=== PATIENT | female | born 1980 | race Caucasian/White ===

== ENCOUNTER 2020-01-12 10:10 | Emergency (ER) | payer OTHER ==
--- NOTE | 2020-01-12 10:32 | ED.PDOC ---
History of Present Illness - General Chief Complaint: Fever Stated Complaint: Fever Time Seen by Provider: 01/12/20 10:18 Source: patient, police Exam Limitations: no limitations - History of Present Illness Initial Comments: This is a 39-year-old female with no significant past medical history presenting to the emergency department with intermittent fevers. She is currently an inmate [facility] the [facility]. She was arrested and has been in custody since 1700 yesterday. Her boyfriend is also incarcerated at the [facility], and is also a patient in the emergency department with intermittent fevers. No recent travel, no known flu/coronavirus contacts. She is 8 weeks , A1 at approximately 8 weeks. She has seen an manager personnel selection for this , had an outpatient ultrasound showing a single IUP. She reports some mild dysuria and urinary frequency. She also reports a mild cough and sore throat. Her temp at the shelter at 6:00 this morning was 102. She is afebrile in the emergency department. She denies any shortness of breath. She does report some mild diarrhea, but states this is been ongoing since she found out she was . She denies any bleeding or vaginal discharge.The patient and her boyfriend recently moved from [place] to [place], and they have been living in a motel for the past several weeks Review of Systems - Review of Systems Constitutional: States: chills, fever. Denies: diaphoresis, malaise EENTM: States: throat pain. Denies: nose congestion Respiratory: States: cough. Denies: short of breath, wheezing Cardiology: Denies: chest pain, edema Gastrointestinal/Abdominal: States: diarrhea. Denies: abdominal pain, nausea, vomiting Musculoskeletal: Denies: joint pain, joint swelling, muscle pain Skin: Denies: lesions, rash Endocrine: States: increased urine. Denies: increased hunger, increased thirst Hematologic/Lymphatic: States: no symptoms reported All other Systems: Reviewed and Negative Past Medical History (General) - Patient Medical History Hx Asthma: No Hx Cardiac Disorders: No Hx Congestive Heart Failure: No Hx Thyroid Disease: No Hx Diabetes: No Hx Gastroesophageal Reflux: No Family Medical History - Family History Mother Family History: No Known Physical Exam - Physical Exam General Appearance: Alert, Comfortable Eye Exam: bilateral normal ENT Exam: hearing grossly normal, TMs normal Neck: non-tender, full range of motion, supple Respiratory: lungs clear, normal breath sounds, no respiratory distress, no accessory muscle use Cardiovascular/Chest: normal peripheral pulses, regular rate, rhythm, no edema, no gallop, no JVD, no murmur Gastrointestinal/Abdominal: non tender, soft Extremity: non-tender, normal inspection Neurologic: no motor/sensory deficits, alert, normal mood/affect, oriented x 3 Skin Exam: normal color, warm/dry Progress - Progress Progress: 01/12/20 12:27 This patient was brought to the emergency department for fever of unknown origin. She is currently incarcerated. called Dr. Mcdonough, who recommended patient be brought in for testing. She is afebrile here, normal sats, essentially asymptomatic except for dysuria and a very mild cough. UA suggestive of UTI. Will discharge home with keflex, UCx pending. Typically, she would not require coronavirus testing given normal vital signs and minimal symptoms in the ED, but since she is currently incarcerated, I felt coronavirus testing was indicated simply from a public health standpoint so that appropriate measures can be taken at the shelter for quarantine. I explained to the patient and to the shoe repairer apprentice that Covid results would not come back today and the patient will need to be quarantined until resulted. 01/12/20 18:18 Documented heart rate of 8 I believe is an error. When I listen to her heart, heart rate was in the 70s to 80s, no dizziness, no symptoms. 01/12/20 18:20 - Results/Orders Results/Orders: 1 view chest x-ray reviewed personally by me at 10:36 AM. No infiltrates, no pneumothorax, no acute process PROCEDURE: XR Chest, 1 View CLINICAL INDICATION: The patient is 39 years old and is Female; cough, fever MAIN TECHNIQUE: Frontal view of the chest. COMPARISON: Prior study from 09/02/2018. FINDINGS: LUNGS: The lungs are clear and free of focal consolidation. PLEURAL SPACE: There is no pneumothorax. There are no pleural effusions noted. HEART: The heart size is normal. MEDIASTINUM: The mediastinal contour is normal. BONES/JOINTS: No acute abnormality noted. VASCULATURE: Pulmonary vascularity is not engorged. IMPRESSION: No active disease is seen in the chest. Electronically signed by: Rick Crane MD 01/12/2020 10:42 AM CDT Departure - Departure Clinical Impression: Fever in adult, Cystitis during in first trimester, antepartum Disposition: Group Home Condition: Good Departure Forms: ED Discharge - Pt. Copy, Patient Portal Self Enrollment Instructions: DI for Fever (Symptom) -- Adult, Urinary Tract Infection, Adult (DC) Prescriptions: Cephalexin Monohydrate [Keflex] 500 mg PO BID 5 Days cap Home Medications: Ambulatory Orders Cephalexin Monohydrate [Keflex] 500 mg PO BID 5 Days cap 01/12/20 Additional Instructions: Wash hands frequently. Do not touch her mouth, eyes, face. Patient needs to be quarantined in the shelter until coronavirus results have been returned. Drink plenty of fluids. Follow-up with your manager personnel selection as soon as possible for ongoing management of your . Return to the emergency room for abdominal pain, bleeding, shortness of breath, changes in mental status, intractable vomiting, or any other concerns.
--- NOTE | 2020-01-12 10:44 | RAD ---
PROCEDURE: XR Chest, 1 View CLINICAL INDICATION: The patient is 39 years old and is Female; cough, fever MAIN TECHNIQUE: Frontal view of the chest. COMPARISON: Prior study from 09/02/2018. FINDINGS: LUNGS: The lungs are clear and free of focal consolidation. PLEURAL SPACE: There is no pneumothorax. There are no pleural effusions noted. HEART: The heart size is normal. MEDIASTINUM: The mediastinal contour is normal. BONES/JOINTS: No acute abnormality noted. VASCULATURE: Pulmonary vascularity is not engorged. IMPRESSION: No active disease is seen in the chest. Electronically signed by: Rick Crane MD 01/12/2020 10:42 AM CDT
[2020-01-12] MEDS ORDERED: cefTRIAXone SODIUM 1 GM in SODIUM CHL 0.9% 50ML MIN-BAG+ 50 ML IVPB ONE (12:03)
[2020-01-12] MEDS ORDERED: SODIUM CHL 0.9% 50ML MIN-BAG+ 50 ML IVPB ONE (12:07)
[2020-01-12] MEDS ORDERED: cefTRIAXone SODIUM 1 GM VIAL ONE (12:07)
[2020-01-12 12:53] VITALS: BP 96/71; TEMP 98.8; O2SAT 99
== END 2020-01-12 12:35 ==
LOC: ER 10:10
DX: O23.11 Infections of bladder in pregnancy, first trimester (principal); O26.891 Other specified pregnancy related conditions, first trimester; R50.9 Fever, unspecified; Z3A.08 8 weeks gestation of pregnancy
CPT/HCPCS: 36415; 71045; 80048; 81001; 85025; 87070; 87077; 87086; 87486; 87581; 87633; 87635; 87798; 87880; 94760; 96365; 99284; J0696; J7050